=== PATIENT | male | born 1950 | race Caucasian/White ===

== ENCOUNTER 2023-05-26 13:02 | Emergency (ER) | payer OTHER ==
[2023-05-26 13:26] VITALS: BMI 68.3
[2023-05-26] MEDS ORDERED: ACETAMINOPHEN 500 MG TABLET (FP) PO ONE (13:43)
[2023-05-26] MEDS ORDERED: ACETAMINOPHEN 325 MG TABLET (FP) ONE (14:16)
[2023-05-26 14:19] LABS: BASO % 0.3 % (0-2.0); EOS % 0.1 % (0-4.5); HEMOGLOBIN 12.4 GM/dL (11.7-16.9); LYMPH % 8.2 % (8-40); MCH 28.5 pg (25.7-33.7); MCHC 34.3 g/dl (32.0-35.9); MEAN CELL VOLUME 83.2 fl (80-96); NEUT % 84.4 % (42.8-82.8); PLATELET COUNT 202 10^3/uL (134-434); RBC 4.33 M/mm3 (4.00-5.60); RDW 14.4 % (11.9-15.9); WHITE BLOOD COUNT 11.1 K/mm3 (4.0-10.0)
[2023-05-26 14:28] LABS: INR 1.2 (0.83-1.09); PROTHROMBIN TIME (PATIENT) 13.9 SEC (9.7-13.0)
[2023-05-26 14:30] LABS: ACTIVATED PTT 32.1 SECONDS (25.2-36.5)
[2023-05-26 14:39] LABS: POTASSIUM 4.2 mmol/L (3.5-5.1)
[2023-05-26 14:40] LABS: CALCIUM 9.2 mg/dL (8.5-10.1)
[2023-05-26 14:44] LABS: CREATININE 0.9 mg/dL (0.55-1.3)
[2023-05-26 14:46] LABS: BILIRUBIN,TOTAL 0.9 mg/dL (0.2-1); TOT PROT 7.7 g/dl (6.4-8.2)
[2023-05-26] MEDS ORDERED: IBUPROFEN 600 MG TABLET (FP) PO ONE ×2 (14:53→15:08)
[2023-05-26 15:07] LABS: ERYTHROCYTE SEDIMENTATION RATE 28 mm/hr (0-20)
[2023-05-26 17:26] VITALS: BP 128/71; PULSE 72
[2023-05-26 18:21] VITALS: RESP 16; TEMP 98.4
== END 2023-05-26 18:30 | disposition short-term general hospital (02) ==
LOC: JER 13:02
DX: M25.531 Pain in right wrist (principal); M79.641 Pain in right hand; R22.31 Localized swelling, mass and lump, right upper limb
CPT/HCPCS: 36415; 73110-TC-RT-FY; 73130-TC-RT-FY; 80053; 84550; 85025; 85610; 85651; 85730; 86140; 86850; 86900; 86901; 87040; 99285-25

== ENCOUNTER 2025-05-17 12:15 | Emergency (ER) | payer OTHER ==
[2025-05-17 13:49] VITALS: TEMP 98; BMI 29.1
[2025-05-17] MEDS ORDERED: hydrALAZINE HCL 50 MG TABLET (FP) ONE (15:34)
[2025-05-17] MEDS ORDERED: hydrOXYzine PAMOATE 50 MG CAPSULE (FP) ONE (15:37)
[2025-05-17 15:57] VITALS: BP 140/74; PULSE 88; RESP 17
== END 2025-05-17 16:21 | disposition home or self-care (01) ==
LOC: JER 12:15
DX: L40.9 Psoriasis, unspecified (principal)
CPT/HCPCS: 99283-25